=== PATIENT | male | born 1965 | race Caucasian/White ===

== ENCOUNTER 2020-11-02 05:30 | Emergency (ER) | payer OTHER ==
[~2020-11-02 05:30] MED LIST: ACID REDUCER10 MG PO; ATORVASTATIN CA10 MG PO; CLARITIN 10MG T10 MG PO; COLACE100 MG PO; DOK100 MG PO; GABAPENTIN800 MG PO; HYDROCHLOROTH12.5 M1 PO; LEVOTHYROXINE50 MCG PO; LISINOPRIL10 MG PO; MIRTAZAPINE30 MG PO; NORCO 10-325 T1 EACH PO; PAROXETINE HCL20 MG PO; SUCRALFATE1 GM/10 ML PO; VITAMIN D21250 MCG PO
== END 2020-11-02 06:50 | disposition home or self-care (01) ==
LOC: ER1 05:30
DX: T17.228A Food in pharynx causing other injury, initial encounter (principal); I10 Essential (primary) hypertension; Z88.0 Allergy status to penicillin
CPT/HCPCS: 96374; 99283; J1610

== ENCOUNTER 2020-12-18 10:15 | Emergency (ER) | payer OTHER ==
[2020-12-18 13:43] LABS: HEMOGLOBIN 14.2 gm/dl (14.0-17.5); RED BLOOD COUNT 4.75 M/UL (4.20-5.50); WHITE BLOOD COUNT 8.8 K/UL (4.5-11.0)
[2020-12-18 13:56] LABS: BUN/CREATININE RATIO 13 (0-10)
[2020-12-18] MEDS ORDERED: PROTONIX40 MG PO (15:17)
== END 2020-12-18 15:36 | disposition home or self-care (01) ==
LOC: ER1 10:15
PROVIDERS: Physician Assistant Medical
DX: K22.2 Esophageal obstruction (principal); E78.5 Hyperlipidemia, unspecified; K21.9 Gastro-esophageal reflux disease without esophagitis; I10 Essential (primary) hypertension; Z88.0 Allergy status to penicillin
CPT/HCPCS: 71045; 80053; 83690; 84484; 85025; 93005; 96374; 99284; J1610

== ENCOUNTER 2022-04-10 11:46 | Emergency (ER) | payer OTHER ==
[~2022-04-10] VITALS: Ht 185.4 cm; Wt 149.7 kg
[~2022-04-10 11:46] MED LIST changes: +PROTONIX40 MG PO
[2022-04-10 14:03] LABS: HEMOGLOBIN 14.7 gm/dl (14.0-17.5); RED BLOOD COUNT 4.78 M/UL (4.20-5.50); WHITE BLOOD COUNT 14.1 K/UL (4.5-11.0)
[2022-04-10 14:25] LABS: BUN/CREATININE RATIO 11 (0-10)
[2022-04-10] MEDS ORDERED: CLEOCIN HCL300 MG PO (17:20)
[2022-04-10] MEDS ORDERED: PERCOCET 5/325 T1 EA PO (17:20)
== END 2022-04-10 19:47 | disposition home or self-care (01) ==
LOC: ER1 11:46
PROVIDERS: Family Medicine
DX: K11.20 Sialoadenitis, unspecified (principal); I10 Essential (primary) hypertension; E07.9 Disorder of thyroid, unspecified; E78.00 Pure hypercholesterolemia, unspecified; F17.220 Nicotine dependence, chewing tobacco, uncomplicated; F17.290 Nicotine dependence, other tobacco product, uncomplicated; Z88.0 Allergy status to penicillin
CPT/HCPCS: 70491; 80053; 81001; 82150; 83690; 85025; 96374; 99284; Q9967